=== PATIENT | male | born 1990 | race Two or more races ===

== ENCOUNTER 2022-10-21 04:24 | Day surgery (SDC) | payer OTHER ==
[2022-10-19 13:02] VITALS: BMI 31.3
[2022-10-21 12:44] VITALS: BP 106/64; PULSE 74; RESP 17
[2022-10-21 15:17] VITALS: TEMP 97.3
== END 2022-10-21 12:45 | disposition home or self-care (01) ==
LOC: JASU-ENDO 04:24
PROVIDERS: ATTEND Internal Medicine Gastroenterology
PROC: 0DBN8ZX Excision of Sigmoid Colon, Via Natural or Artificial Opening Endoscopic, Diagnostic (ICD-10-PCS; 2022-10-21)
PROC: 0DBP8ZX Excision of Rectum, Via Natural or Artificial Opening Endoscopic, Diagnostic (ICD-10-PCS; principal; 2022-10-21 11:15)
DX: K63.89 Other specified diseases of intestine (principal)
CPT/HCPCS: 88305-TC